=== PATIENT | male | born 1975 | race American Indian/Alaskan Native ===

== ENCOUNTER 2019-06-21 08:13 | Emergency (ER) | payer OTHER ==
[2019-06-21] MEDS ORDERED: IBUPROFEN PO ONE (09:36)
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
[2019-06-21 10:44] VITALS: BP 118/80
== END 2019-06-21 10:43 | disposition home or self-care (01) ==
LOC: ED 08:13
DX: S16.1XXA Strain of muscle, fascia and tendon at neck level, initial encounter (principal); F17.200 Nicotine dependence, unspecified, uncomplicated; V49.49XA Driver injured in collision with other motor vehicles in traffic accident, initial encounter; Y93.89 Activity, other specified; Y92.89 Other specified places as the place of occurrence of the external cause; Y99.8 Other external cause status
CPT/HCPCS: 72040; 99283